=== PATIENT | male | born 1950 | race Caucasian/White ===

== ENCOUNTER 2017-09-14 11:29 | Inpatient (IN) | payer MEDICARE, OTHER ==
[2017-09-14] MEDS ORDERED: RINGERS SOLUTION,LACTATED 1,000 ML IV PRN (12:00)
--- NOTE | 2017-09-14 12:03 | ER Document Report ---
ED Medical Screen (RME) - General Chief Complaint: Syncope Stated Complaint: FALL/BODY PAIN Time Seen by Provider: 09/14/17 11:57 Notes: 67 years old male with a history of prosthetic valve, taking Eliquis, diabetes on Victoza, woke up this morning did not eat anything or drink anything, went out to cut his grass. Then he found himself waking up from the from the grass. Fell backwards. He do not remember anything prior to that meeting any symptoms prior to falling down. He was cutting the grass for a few minutes. Then got up on his own came to the ED. Currently have no headache no neck pain or neck stiffness but have upper back pain and low back pain. Denies any chest pain palpitation or diaphoresis. Denies any focal weakness numbness tingling sensation. Denies any abdominal pain nausea vomiting diarrhea dysuria frequency. Denies any pain over the upper limbs or lower limbs. TRAVEL OUTSIDE OF THE [place] IN LAST 30 DAYS: No Physical Exam - Vital signs Vitals: Temp Pulse Resp BP Pulse Ox 97.6 F 55 L 18 118/67 95 09/14/17 11:33 09/14/17 11:33 09/14/17 11:33 09/14/17 11:33 09/14/17 11:33 Course - Vital Signs Vital signs: Temp Pulse Resp BP Pulse Ox 97.6 F 55 L 18 118/67 95 09/14/17 11:33 09/14/17 11:33 09/14/17 11:33 09/14/17 11:33 09/14/17 11:33 Doctor's Discharge - Discharge Referrals: DIYA,NO [Primary Care Provider] - Follow up as needed
[2017-09-14 12:45] LABS: ABSOLUTE EOSINOPHILS # (AUTO) 0.5 10^3/uL (0.0-0.6); ABSOLUTE LYMPHOCYTES (AUTO) 1.4 10^3/uL (0.5-4.7); ABSOLUTE MONOCYTES (AUTO) 0.4 10^3/uL (0.1-1.4); ABSOLUTE NEUT (AUTO) 4.6 10^3/uL (1.7-8.2); BASOPHILS % (AUTO) 0.5 % (0-2); EOSINOPHILS % (AUTO) 6.7 % (0-6); HEMATOCRIT 50.8 % (37.9-51.0); HEMOGLOBIN 17.5 g/dL (13.5-17.0); LYMPHOCYTES % (AUTO) 20.7 % (13-45); MEAN CORPUSCULAR HGB CONC 34.4 g/dL (32.0-36.0); MEAN CORPUSCULAR VOLUME 93 fl (80-97); MONOCYTES % (AUTO) 5.5 % (3-13); PLATELET COUNT 135 10^3/uL (150-450); RED BLOOD COUNT 5.46 10^6/uL (4.35-5.55); RED CELL DISTRIBUTION WIDTH 13.5 % (11.5-14.0); SEGMENTED NEUTROPHILS % (AUTO) 66.6 % (42-78); TOTAL CELLS COUNTED % (AUTO) 100 %; WHITE BLOOD COUNT 6.8 10^3/uL (4.0-10.5)
--- NOTE | 2017-09-14 13:04 | RADIOLOGY REPORT (SQ) ---
EXAM DESCRIPTION: CERV SP 4 OR 5 VIEWS; L SPINE WHOLE; T SPINE AP/LAT COMPLETED DATE/TIME: 09/14/2017 12:51 pm REASON FOR STUDY: Syncope/fall/injury COMPARISON: None. FINDINGS: Five view cervical spine: No malalignment or fracture. Disc spaces are fairly preserved. There are anterior flowing osteophytes however. Patent neural foramina. Clear lung apices. Multilevel disc disease with associated osteophytes. Subtle scoliosis but alignment otherwise looks normal. No fracture. No gross mediastinal hematoma allowing for technique. Probable cardiomegaly a nd vascular congestion. Five view lumbosacral spine: No malalignment or fracture. Multilevel disc disease with slight narro wing and osteophytes throughout. No pars defect. Upper pelvis intact. IMPRESSION: 1. Cervical, thoracic and lumbar spine degenerative changes without fracture or malalign ment. TECHNICAL DOCUMENTATION: JOB ID: [id number] Reading location - IP/workstation name: [email or web address]
--- NOTE | 2017-09-14 13:04 | RADIOLOGY REPORT (SQ) ---
EXAM DESCRIPTION: CERV SP 4 OR 5 VIEWS; L SPINE WHOLE; T SPINE AP/LAT COMPLETED DATE/TIME: 09/14/2017 12:51 pm REASON FOR STUDY: Syncope/fall/injury COMPARISON: None. FINDINGS: Five view cervical spine: No malalignment or fracture. Disc spaces are fairly preserved. There are anterior flowing osteophytes however. Patent neural foramina. Clear lung apices. Multilevel disc disease with associated osteophytes. Subtle scoliosis but alignment otherwise looks normal. No fracture. No gross mediastinal hematoma allowing for technique. Probable cardiomegaly a nd vascular congestion. Five view lumbosacral spine: No malalignment or fracture. Multilevel disc disease with slight narro wing and osteophytes throughout. No pars defect. Upper pelvis intact. IMPRESSION: 1. Cervical, thoracic and lumbar spine degenerative changes without fracture or malalign ment. TECHNICAL DOCUMENTATION: JOB ID: [id number] Reading location - IP/workstation name: [email or web address]
--- NOTE | 2017-09-14 13:04 | RADIOLOGY REPORT (SQ) ---
EXAM DESCRIPTION: CERV SP 4 OR 5 VIEWS; L SPINE WHOLE; T SPINE AP/LAT COMPLETED DATE/TIME: 09/14/2017 12:51 pm REASON FOR STUDY: Syncope/fall/injury COMPARISON: None. FINDINGS: Five view cervical spine: No malalignment or fracture. Disc spaces are fairly preserved. There are anterior flowing osteophytes however. Patent neural foramina. Clear lung apices. Multilevel disc disease with associated osteophytes. Subtle scoliosis but alignment otherwise looks normal. No fracture. No gross mediastinal hematoma allowing for technique. Probable cardiomegaly a nd vascular congestion. Five view lumbosacral spine: No malalignment or fracture. Multilevel disc disease with slight narro wing and osteophytes throughout. No pars defect. Upper pelvis intact. IMPRESSION: 1. Cervical, thoracic and lumbar spine degenerative changes without fracture or malalign ment. TECHNICAL DOCUMENTATION: JOB ID: [id number] Reading location - IP/workstation name: [email or web address]
--- NOTE | 2017-09-14 13:08 | RADIOLOGY REPORT (SQ) ---
EXAM DESCRIPTION: CT HEAD WITHOUT COMPLETED DATE/TIME: 09/14/2017 12:57 pm REASON FOR STUDY: Syncope/fall/injury COMPARISON: None. TECHNIQUE: Axial images acquired through the brain without intravenous contrast. Images reviewed wi th bone, brain and subdural windows. Additional sagittal and coronal reconstructions were generated. Images stored on PACS. All CT scanners at this facility use dose modulation, iterative reconstruction, and/or weight based d osing when appropriate to reduce radiation dose to as low as reasonably achievable (ALARA). [facility]: Dose Right [facility]: CareDose [facility]: Dose Right [facility]: Teradose 4D [facility]: [employer] RADIATION DOSE: CT Rad equipment meets quality standard of care and radiation dose reduction techniq ues were employed. CTDIvol: 53.2 mGy. DLP: 1070 mGy-cm. mGy. LIMITATIONS: None. FINDINGS: VENTRICLES: Normal size and contour. CEREBRUM: No masses. No hemorrhage. No midline shift. No evidence for acute infarction. Normal gra y/white matter differentiation. No areas of low density in the white matter. CEREBELLUM: No masses. No hemorrhage. No alteration of density. No evidence for acute infarction. EXTRAAXIAL SPACES: No fluid collections. No masses. ORBITS AND GLOBE: No intra- or extraconal masses. Normal contour of globe without masses. CALVARIUM: No fracture. PARANASAL SINUSES: No fluid or mucosal thickening. SOFT TISSUES: No mass or hematoma. OTHER: No other significant finding. IMPRESSION: NORMAL BRAIN CT WITHOUT CONTRAST. EVIDENCE OF ACUTE STROKE: NO. COMMENT: Quality ID # [id number]: Final reports with documentation of one or more dose reduction techniques (e.g., Automated exposure control, adjustment of the mA and/or kV according to patient size, use of iterative reconstruction technique) TECHNICAL DOCUMENTATION: JOB ID: [id number] [employer]- All Rights Reserved Reading location - IP/workstation name: [email or web address]
[2017-09-14 13:18] LABS: ALANINE AMINOTRANSFERASE 29 U/L (21-72); ALBUMIN 4.3 g/dL (3.5-5.0); ALKALINE PHOSPHATASE 72 U/L (38-126); ANION GAP 15 (5-19); ASPARTATE AMINO TRANSFERASE 29 U/L (17-59); BILIRUBIN,DIRECT 0.3 mg/dL (0.0-0.4); BLOOD UREA NITROGEN 36 mg/dL (7-20); CALCIUM 9.4 mg/dL (8.4-10.2); CARBON DIOXIDE 26 mmol/L (22-30); CHLORIDE 100 mmol/L (98-107); CREATINE KINASE 57 U/L (55-170); GLUCOSE 233 mg/dL (75-110); POTASSIUM 4.5 mmol/L (3.6-5.0); SODIUM 141.3 mmol/L (137-145); TOTAL PROTEIN 7.2 g/dL (6.3-8.2)
[2017-09-14 13:28] LABS: CREATINE KINASE MB 1.41 ng/mL (<4.55); TROPONIN I 0.03 ng/mL
--- NOTE | 2017-09-14 13:38 | ER Document Report ---
ED General - General Chief Complaint: Syncope Stated Complaint: FALL/BODY PAIN Time Seen by Provider: 09/14/17 11:57 TRAVEL OUTSIDE OF THE [place] IN LAST 30 DAYS: No - HPI Notes: Patient is a 67-year-old male with a history of CHF, A. fib (see on Eliquis), diabetes, AZRA, prosthetic heart valve, hypercholesterolemia who presents to the ED complaining of a syncopal episode and now having thoracic back spasming. Patient states that he did not have much to eat this morning, but went out to mow his yard and just started mowing when he must have blacked out because he woke up on the ground landing on his back after a few minutes. Patient states that he was not unconscious for a long period of time that he is aware of. Patient states that he did have some back pain thereafter and spasming. Patient states that he was sweaty when he received was able to get back to his house. Patient states that aside from the back spasms, he has no other concerns or complaints. He did eat some food and drink some water thereafter. Patient states that he checked his sugar prior to mowing the yard and it was around 140. Denies any headache, fever, neck pain, changes in vision/speech/ mentation/hearing, URI, sore throat, chest pain, palpitations, syncope, cough, shortness of breath, wheeze, dyspnea, abdominal pain, nausea/vomiting/diarrhea, urinary retention, dysuria, hematuria, loss of control of bowel or bladder, numbness/tingling, saddle anesthesia, muscle paralysis/weakness, or rash. - Related Data Allergies/Adverse Reactions: No Known Allergies Allergy (Verified 09/14/17 12:04) Past Medical History - Social History Smoking Status: Former Smoker Chew tobacco use (# tins/day): No Frequency of alcohol use: None Drug Abuse: None Family History: Reviewed & Not Pertinent Patient has suicidal ideation: No Patient has homicidal ideation: No - Past Medical History Cardiac Medical History: Reports: Hx Congestive Heart Failure, Hx Heart Attack, Hx Hypercholesterolemia, Hx Hypertension Endocrine Medical History: Reports: Hx Diabetes Mellitus Type 2 Renal/ Medical History: Denies: Hx Peritoneal Dialysis Past Surgical History: Reports: Hx Cardiac Catheterization, Hx Cardiac Surgery - valve replacement Review of Systems - Review of Systems -: Yes All other systems reviewed and negative Physical Exam - Vital signs Vitals: Temp Pulse Resp BP Pulse Ox 97.6 F 55 L 18 118/67 95 09/14/17 11:33 09/14/17 11:33 09/14/17 11:09/14/17 11:09/14/17 11:33 - Notes Notes: PHYSICAL EXAMINATION: GENERAL: Well-appearing, well-nourished and in no acute distress. A&Ox4. Answers questions appropriately. Very pleasant. HEAD: Atraumatic, normocephalic. Non-tender. No trammell sign. no bogginess or hematoma. EYES: Pupils equal round and reactive to light, extraocular movements intact, sclera anicteric, conjunctiva are normal. No raccoon eyes/entrapment. no nystagmus. ENT: EAC clear b/l. TM's intact b/l without erythema, fluid, or perforation. Nares patent and without discharge. oropharynx clear without exudates. No tonsilar hypertrophy or erythema. Moist mucous membranes. No sinus tenderness. No hemotympanum/CSF discharge. NECK: Normal range of motion, supple without lymphadenopathy. No rigidity. No midline tenderness. NEXUS negative. No bruit. Chest: no ecchymosis. No flail chest. equal rise/fall. Non-tender LUNGS: Breath sounds clear to auscultation bilaterally and equal. No wheezes rales or rhonchi. HEART: Regular rate and rhythm without murmurs, rubs, gallops. ABDOMEN: Soft, nontender, nondistended abdomen. No guarding, no rebound. No masses appreciated. Normal bowel sounds present. No CVA tenderness bilaterally. No ecchymosis. Musculoskeletal: Ext b/l: FROM to passive/active. Strength 5+/5. No deficits noted. No bony tenderness of extremities. Back: FROM to passive/active. Strength 5+/5. No vertebral point tenderness, stepoffs, or deformities. No other bony tenderness or ecchymosis. SLR negative b/l. + tenderness to the rt T-paraspinal mm, mild spasm. No SI jt tenderness. No foot drop. Extremities: No cyanosis, clubbing, or edema b/l. Peripheral pulses 2+. Capillary refill less than 2 seconds. NEUROLOGICAL: NIH 0. GCS 15. Cranial nerves grossly intact. Normal speech, normal gait. Normal sensory, motor exams. Reflexes 2+ b/l. RADHA's negative. Pronator drift negative. Heel/hernandez, finger/nose wnl. PSYCH: Normal mood, normal affect. SKIN: Warm, Dry, normal turgor, no rashes or lesions noted. Course - Re-evaluation Re-evalutation: 09/14/17 14:[address] pierce. We will obtain a CTA chest/abd to further evaluate for dissection with his back pain/spasms, but we do have a lower suspicion based on his presentation and acceptable vitals. Admission pending thereafter. 09/14/17 16:04 CTA negative. Call placed to Dr. Issa for admission. 09/14/17 16:[address] Issa. He would like a 2nd trop performed. 09/14/17 16:51 Dr. Issa faxed an admission order accepting patient and orders placed by himself. - Vital Signs Vital signs: Temp Pulse Resp BP Pulse Ox 97.6 F 71 25 H 127/74 H 95 09/14/17 11:33 09/14/17 14:10 09/14/17 16:10 09/14/17 16:10 09/14/17 16:10 - Laboratory Result Diagrams: 09/14/17 12:20 09/14/17 12:20 Laboratory results interpreted by me: 09/14/17 09/14/17 09/14/17 12:20 12:20 13:40 Hgb 17.5 H Plt Count 135 L Eosinophils % 6.7 H BUN 36 H Creatinine 1.38 H Est GFR (Non-Af Amer) 51 L Glucose 233 H Urine Ascorbic Acid 40 H Discharge - Discharge Clinical Impression: Chronic a-fib Episode of syncope Qualifiers: Syncope type: unspecified Qualified Code(s): R55 - Syncope and collapse Condition: Stable Disposition: ADMITTED INPATIENT Admitting Provider: Luis Manuel Unit Admitted: Medical Floor
[2017-09-14 14:02] LABS: APPEARANCE,URINE CLEAR; BILIRUBIN,URINE NEGATIVE (NEGATIVE); COLOR,URINE YELLOW; GLUCOSE, URINE NEGATIVE (NEGATIVE); KETONES,URINE NEGATIVE (NEGATIVE); LEUKOCYTE ESTERASE,URINE NEGATIVE (NEGATIVE); NITRITE,URINE NEGATIVE (NEGATIVE); PROTEIN,URINE NEGATIVE (NEGATIVE); URINE SPECIFIC GRAVITY 1.011; UROBILINOGEN,URINE NEGATIVE mg/dL (<2.0)
--- NOTE | 2017-09-14 14:18 | RADIOLOGY REPORT (SQ) ---
EXAM DESCRIPTION: CHEST SINGLE VIEW COMPLETED DATE/TIME: 09/14/2017 1:52 pm REASON FOR STUDY: syncope COMPARISON: None. NUMBER OF VIEWS: One view. TECHNIQUE: Single frontal radiographic view of the chest acquired. LIMITATIONS: None. FINDINGS: LUNGS AND PLEURA: No opacities, masses or pneumothorax. No pleural effusion. MEDIASTINUM AND HILAR STRUCTURES: No masses. Contour normal. HEART AND VASCULAR STRUCTURES: Heart enlarged without failure. Normal vasculature. BONES: No acute findings. HARDWARE: CABG hardware. OTHER: No other significant finding. IMPRESSION: HEART ENLARGED WITHOUT FAILURE. NO OTHER SIGNIFICANT RADIOGRAPHIC FINDING IN THE CHEST. TECHNICAL DOCUMENTATION: JOB ID: [id number] [employer]- All Rights Reserved Reading location - IP/workstation name: [email or web address]
[2017-09-14] MEDS ORDERED: CYCLOBENZAPRINE HCL 10 MG TABLET PO ONE (14:24)
[2017-09-14 14:51] LABS: URINE AMPHETAMINES SCREEN NEGATIVE; URINE BARBITURATES SCREEN NEGATIVE; URINE BENZODIAZEPINES SCREEN NEGATIVE; URINE COCAINE SCREEN NEGATIVE; URINE MARIJUANA (THC) SCREEN NEGATIVE; URINE METHADONE SCREEN NEGATIVE; URINE PHENCYCLIDINE SCREEN NEGATIVE
[2017-09-14] MEDS ORDERED: FENTANYL CITRATE INJ/PF 100 MCG/2 ML AMPUL IV ONE (15:18)
--- NOTE | 2017-09-14 15:59 | RADIOLOGY REPORT (SQ) ---
EXAM DESCRIPTION: CTA CHEST; CTA ABDOMEN COMPLETED DATE/TIME: 09/14/2017 3:36 pm REASON FOR STUDY: r/o dissection, extend to iliacs; r/o dissection, syncope, back pain COMPARISON: None. TECHNIQUE: CT scan of the chest, abdomen performed using helical scanning technique with dynamic int ravenous contrast injection. Images reviewed with lung, soft tissue and bone windows. Reconstructed coronal and sagittal MPR images reviewed. Additional 3 dimensional post-processing performed to develop Maximal Intensity Projection images (MT P). All images stored on PACS. All CT scanners at this facility use dose modulation, iterative reconstruction, and/or weight based d osing when appropriate to reduce radiation dose to as low as reasonably achievable (ALARA). [facility]: Dose Right [facility]: CareDose [facility]: Dose Right [facility]: Teradose 4D [facility]: [employer] CONTRAST TYPE AND DOSE: contrast/concentration: Isovue 370.00 mg/ml; Total Contrast Delivered: 75.0 ml; Total Saline Delivered: 60.0 ml RENAL FUNCTION: Creatinine 1.38 RADIATION DOSE: CT Rad equipment meets quality standard of care and radiation dose reduction techniq ues were employed. CTDIvol: 22.5 mGy. DLP: 834 mGy-cm. . LIMITATIONS: None. FINDINGS: CHEST AORTA AND GREAT VESSELS: Mild aortic valve replacement artifact. Normal caliber aorta without dissec tion or aneurysm. Mild atherosclerosis. Clear pulmonary arteries. HILAR AND MEDIASTINAL STRUCTURES: Cardiac enlargement. No pericardial effusion. No mediastinal mass or adenopathy. 3D MIPS: Confirm above findings. OTHER: No acute or suspicious lung opacities. No fracture or bone lesion appreciated. ABDOMEN AORTA AND VESSELS: No evidence of aortic dissection or aneurysm. Patent mesenteric and renal arteri es. Normal caliber patent bilateral common, internal and external iliac arteries as assessed. No ve nous clot. SOLID ORGANS, BILIARY TREE AND ADRENAL GLANDS: Cholelithiasis. No evidence of solid organ lesion or urinary obstruction. No adrenal mass. BOWEL: No evidence of bowel obstruction or gross inflammatory changes. Normal appendix. No ascites or abnormal gas. OTHER: No evidence of fracture or bone lesion. Spondylosis. IMPRESSION: 1. No evidence of thoracic or abdominal aortic aneurysm or dissection. 2. No acute or suspicious thoracic or abdominal abnormality. COMMENT: Quality ID # 436: Final reports with documentation of one or more dose reduction techniques (e.g., Automated exposure control, adjustment of the mA and/or kV according to patient size, use of iterative reconstruction technique) TECHNICAL DOCUMENTATION: JOB ID: [id number] [employer]- All Rights Reserved Reading location - IP/workstation name: [email or web address]
--- NOTE | 2017-09-14 15:59 | RADIOLOGY REPORT (SQ) ---
EXAM DESCRIPTION: CTA CHEST; CTA ABDOMEN COMPLETED DATE/TIME: 09/14/2017 3:36 pm REASON FOR STUDY: r/o dissection, extend to iliacs; r/o dissection, syncope, back pain COMPARISON: None. TECHNIQUE: CT scan of the chest, abdomen performed using helical scanning technique with dynamic int ravenous contrast injection. Images reviewed with lung, soft tissue and bone windows. Reconstructed coronal and sagittal MPR images reviewed. Additional 3 dimensional post-processing performed to develop Maximal Intensity Projection images (MD P). All images stored on PACS. All CT scanners at this facility use dose modulation, iterative reconstruction, and/or weight based d osing when appropriate to reduce radiation dose to as low as reasonably achievable (ALARA). [facility]: Dose Right [facility]: CareDose [facility]: Dose Right [facility]: Teradose 4D [facility]: [employer] CONTRAST TYPE AND DOSE: contrast/concentration: Isovue 370.00 mg/ml; Total Contrast Delivered: 75.0 ml; Total Saline Delivered: 60.0 ml RENAL FUNCTION: Creatinine 1.38 RADIATION DOSE: CT Rad equipment meets quality standard of care and radiation dose reduction techniq ues were employed. CTDIvol: 22.5 mGy. DLP: 834 mGy-cm. . LIMITATIONS: None. FINDINGS: CHEST AORTA AND GREAT VESSELS: Mild aortic valve replacement artifact. Normal caliber aorta without dissec tion or aneurysm. Mild atherosclerosis. Clear pulmonary arteries. HILAR AND MEDIASTINAL STRUCTURES: Cardiac enlargement. No pericardial effusion. No mediastinal mass or adenopathy. 3D MIPS: Confirm above findings. OTHER: No acute or suspicious lung opacities. No fracture or bone lesion appreciated. ABDOMEN AORTA AND VESSELS: No evidence of aortic dissection or aneurysm. Patent mesenteric and renal arteri es. Normal caliber patent bilateral common, internal and external iliac arteries as assessed. No ve nous clot. SOLID ORGANS, BILIARY TREE AND ADRENAL GLANDS: Cholelithiasis. No evidence of solid organ lesion or urinary obstruction. No adrenal mass. BOWEL: No evidence of bowel obstruction or gross inflammatory changes. Normal appendix. No ascites or abnormal gas. OTHER: No evidence of fracture or bone lesion. Spondylosis. IMPRESSION: 1. No evidence of thoracic or abdominal aortic aneurysm or dissection. 2. No acute or suspicious thoracic or abdominal abnormality. COMMENT: Quality ID # [id number]: Final reports with documentation of one or more dose reduction techniques (e.g., Automated exposure control, adjustment of the mA and/or kV according to patient size, use of iterative reconstruction technique) TECHNICAL DOCUMENTATION: JOB ID: [id number] [employer]- All Rights Reserved Reading location - IP/workstation name: [email or web address]
[2017-09-14] MEDS ORDERED: ACETAMINOPHEN 325 MG TABLET PO PRN (16:28)
[2017-09-14] MEDS ORDERED: DEXTROSE 50%-WATER 25 GM/50 ML DISP.SYRIN IV PRN ×2 (16:29)
[2017-09-14] MEDS ORDERED: DEXTROSE 40% GEL 15 GM TUBE PO PRN ×2 (16:29)
[2017-09-14] MEDS ORDERED: GLUCAGON,HUMAN RECOMB 1 MG INJ IM PRN (16:29)
[2017-09-14] MEDS ORDERED: PRAVASTATIN SODIUM 5 MG PO SCH ×2 (16:30→16:38)
--- NOTE | 2017-09-14 17:16 | PDOC H&P ---
History of Present Illness Admission Date/PCP: NIKO DAWN MD Patient complains of: Syncopal episode History of Present Illness: OLE MENDEZ is a 67 year old male This is a 67-year-old male with a significant history of the aortic valve replacement with a pig well in the [facility] history of the coronary artery disease status post stent placement history of the hypertension history of the hyperlipidemia and history of the type 2 diabetes mellitus and a history of the chronic A. fib and a chronic EliquisRecently came to see me as a new patient in my office last week came to the emergency department because of the syncopal episode According to the patient when he was working in the yard and suddenly patient's blackout and patient was landed on the ground with his back and then started complaining of back pain patient's denied any loss of consciousness patient's denied any chest pain denied any shortness of the breath In the emergency department patient have a CT of the head was done was negative patient was CTA of the chest and abdomen and pelvis was done was negative for any dissections or other abnormalities Should have x-ray of the spine was all negative for any acute fractures Was giving the fentanyl And muscle relaxant for the back spasmIn the emergency departments Patient at this point ER physicians call to her admissions 4 to rule out further any cardiac arrhythmia Patients went outside denied any chest pain denied any shortness of the breath Past Medical History Cardiac Medical History: Reports: Congestive Heart Failure, Coronary Artery Disease, Myocardial Infarction, Hyperlipidema, Hypertension Endocrine Medical History: Reports: Diabetes Mellitus Type 2 Renal/ Medical History: Reports: Chronic Kidney Disease GI Medical History: Reports: Gastroesophageal Reflux Disease Past Surgical History Past Surgical History: Reports: Cardiac Catheterization, Coronary Stent, Valve Replacement Social History Information Source: Parent Smoking Status: Former Smoker Frequency of Alcohol Use: None Hx Recreational Drug Use: No Hx Prescription Drug Abuse: No Family History Family History: Reviewed & Not Pertinent Parental Family History Reviewed: Yes Children Family History Reviewed: Yes Sibling(s) Family History Reviewed.: Yes Medication/Allergy Home Medications: Apixaban [Eliquis] 5 mg PO QAM 09/14/17 Carvedilol [Carvedilol] 3.125 mg PO BID 09/14/17 Furosemide [Lasix 40 mg Tablet] 40 mg PO DAILY 09/14/17 Liraglutide [Victoza 2-Nelson] 1.2 ml SQ QAM 09/14/17 Pravastatin Sodium [Pravastatin Sodium] 5 mg PO MOWEFR 09/14/17 Spironolactone [Spironolactone] 25 mg PO QAM 09/14/17 Allergies/Adverse Reactions: No Known Allergies Allergy (Verified 09/14/17 12:04) Review of Systems Constitutional: ABSENT: chills, fever(s), headache(s), weight gain, weight loss Eyes: ABSENT: visual disturbances Ears: ABSENT: hearing changes Cardiovascular: ABSENT: chest pain, dyspnea on exertion, edema, orthropnea, palpitations Respiratory: ABSENT: cough, hemoptysis Gastrointestinal: ABSENT: abdominal pain, constipation, diarrhea, hematemesis, hematochezia, nausea, vomiting Genitourinary: ABSENT: dysuria, hematuria Musculoskeletal: ABSENT: joint swelling Integumentary: ABSENT: rash, wounds Neurological: ABSENT: abnormal gait, abnormal speech, confusion, dizziness, focal weakness, syncope Psychiatric: ABSENT: anxiety, depression, homidical ideation, suicidal ideation Endocrine: ABSENT: cold intolerance, heat intolerance, menstrual abnormalities, polydipsia, polyuria Hematologic/Lymphatic: ABSENT: easy bleeding, easy bruising, lymphadenopathy Physical Exam Vital Signs: Temp Pulse Resp BP Pulse Ox 97.6 F 71 16 118/82 94 09/14/17 11:33 09/14/17 14:10 09/14/17 15:00 09/14/17 14:10 09/14/17 15:00 Intake & Output 09/13/17 09/14/17 09/15/17 06:59 06:59 06:59 Weight 123.377 kg General appearance: PRESENT: no acute distress, well-developed, well-nourished Head exam: PRESENT: atraumatic, normocephalic Eye exam: PRESENT: conjunctiva pink, EOMI, PERRLA. ABSENT: scleral icterus Ear exam: PRESENT: normal external ear exam Mouth exam: PRESENT: moist, tongue midline Neck exam: PRESENT: full ROM. ABSENT: carotid bruit, JVD, lymphadenopathy, thyromegaly Respiratory exam: PRESENT: clear to auscultation [place] Cardiovascular exam: PRESENT: RRR. ABSENT: diastolic murmur, rubs, systolic murmur Pulses: PRESENT: normal dorsalis pedis pul, +2 pedal pulses bilateral Vascular exam: PRESENT: normal capillary refill GI/Abdominal exam: PRESENT: normal bowel sounds, soft. ABSENT: distended, guarding, mass, organolmegaly, rebound, tenderness Rectal exam: PRESENT: deferred Extremities exam: ABSENT: pedal edema Musculoskeletal exam: PRESENT: ambulatory Neurological exam: PRESENT: alert, awake, oriented to person, oriented to place , oriented to time, oriented to situation, CN II-XII grossly intact. ABSENT: motor sensory deficit Psychiatric exam: PRESENT: appropriate affect, normal mood. ABSENT: homicidal ideation, suicidal ideation Skin exam: PRESENT: dry, intact, warm. ABSENT: cyanosis, rash Results Laboratory Results: 09/14/17 12:20 09/14/17 12:20 09/14/17 09/14/17 09/14/17 12:20 12:20 13:40 WBC 6.8 RBC 5.46 Hgb 17.5 H Hct 50.8 MCV 93 MCH 32.0 MCHC 34.4 RDW 13.5 Plt Count 135 L Seg Neutrophils % 66.6 Lymphocytes % 20.7 Monocytes % 5.5 Eosinophils % 6.7 H Basophils % 0.5 Absolute Neutrophils 4.6 Absolute Lymphocytes 1.4 Absolute Monocytes 0.4 Absolute Eosinophils 0.5 Absolute Basophils 0.0 Sodium 141.3 Potassium 4.5 Chloride 100 Carbon Dioxide 26 Anion Gap 15 BUN 36 H Creatinine 1.38 H Est GFR ( Amer) > 60 Est GFR (Non-Af Amer) 51 L Glucose 233 H Calcium 9.4 Total Bilirubin 1.0 AST 29 ALT 29 Alkaline Phosphatase 72 Total Protein 7.2 Albumin 4.3 Urine Color YELLOW Urine Appearance CLEAR Urine pH 5.0 Ur Specific [place] 1.011 Urine Protein NEGATIVE Urine Glucose (UA) NEGATIVE Urine Ketones NEGATIVE Urine Blood NEGATIVE Urine Nitrite NEGATIVE Ur Leukocyte Esterase NEGATIVE Urine WBC (Auto) 1 09/14/17 09/14/17 09/14/17 12:20 12:20 12:20 Creatine Kinase 57 CK-MB (CK-2) 1.41 Troponin I 0.030 NT-Pro-B Natriuret Pep 170 Impressions: Cervical Spine X-Ray 09/14/17 11:58 IMPRESSION: 1. Cervical, thoracic and lumbar spine degenerative changes without fracture or malalignment. Head CT 09/14/17 11:58 IMPRESSION: NORMAL BRAIN CT WITHOUT CONTRAST. EVIDENCE OF ACUTE STROKE: NO. Lumbar Spine X-Ray 09/14/17 11:58 IMPRESSION: 1. Cervical, thoracic and lumbar spine degenerative changes without fracture or malalignment. Thoracic Spine X-Ray 09/14/17 11:58 IMPRESSION: 1. Cervical, thoracic and lumbar spine degenerative changes without fracture or malalignment. Chest X-Ray 09/14/17 13:31 IMPRESSION: HEART ENLARGED WITHOUT FAILURE. NO OTHER SIGNIFICANT RADIOGRAPHIC FINDING IN THE CHEST. Chest/Abdomen CTA 09/14/17 14:39 IMPRESSION: 1. No evidence of thoracic or abdominal aortic aneurysm or dissection. 2. No acute or suspicious thoracic or abdominal abnormality. Assessment & Plan - Diagnosis (1) Syncopal episodes Qualifiers: Syncope type: unspecified Qualified Code(s): R55 - Syncope and collapse Is this a current diagnosis for this admission?: Yes Plan: Will admit the patient's to rule out the other etiology including the cardiac arrhythmia As per discussed with the cardiology order the echocardiogram to rule out aortic valve we will also order the carotid Doppler study (2) Aortic valve replaced Is this a current diagnosis for this admission?: Yes Plan: Will order the 2D echocardiogram (3) Chronic a-fib Is this a current diagnosis for this admission?: Yes Plan: Continues to Eliquis (4) Coronary artery disease Qualifiers: Coronary Disease-Associated Artery/Lesion type: [place] artery Is this a current diagnosis for this admission?: Yes Plan: Will rule out the acute coronary syndromes (5) Hypertension Qualifiers: Hypertension type: essential hypertension Qualified Code(s): I10 - Essential (primary) hypertension Is this a current diagnosis for this admission?: Yes Plan: Continues to current medications (6) Type 2 diabetes mellitus Qualifiers: Diabetes mellitus fpc 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 Chronic kidney disease stage: stage 3 (moderate) Is this a current diagnosis for this admission?: Yes Plan: Continues to sliding scale and continues to current medications (7) Hyperlipidemia Qualifiers: Hyperlipidemia type: unspecified Qualified Code(s): E78.5 - Hyperlipidemia , unspecified Is this a current diagnosis for this admission?: Yes Plan: Continues to statin (8) Back pain Qualifiers: Back pain location: low back pain Is this a current diagnosis for this admission?: Yes Plan: As needed pain medicationsNo sign of any acute fracture (9) Chronic kidney disease Qualifiers: Chronic kidney disease stage: stage 3 (moderate) Qualified Code(s): N18.3 - Chronic kidney disease, stage 3 (moderate) Is this a current diagnosis for this admission?: Yes Plan: There was some central IV fluid due to the IV contrast (10) Congestive heart failure Qualifiers: Heart failure type: unspecified Heart failure chronicity: chronic Qualified Code(s): I50.9 - Heart failure, unspecified Is this a current diagnosis for this admission?: Yes Plan: Continues to monitor the patient's - Time Time Spent: 50 to 70 Minutes Medications reviewed and adjusted accordingly: Yes Anticipated discharge: Home Within: Other - Inpatient Certification Medical Necessity: Need Close Monitoring Due to Risk of Patient Decompensation, Need For IV Fluids 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
[2017-09-14] MEDS: NORMAL SALINE 1000 ML 1,000 ML IV PRN (18:08)
--- NOTE | 2017-09-14 20:12 | PDOC CONSULTATION ---
Consultation Consult Date: 09/14/17 Attending physician:: NIKO DAWN Consult reason:: Syncope History of Present Illness Admission Date/PCP: 09/14/17 16:24 NIKO DAWN MD Patient complains of: Syncope History of Present Illness: This is a 67-year-old male with a significant history of the aortic valve replacement with a pig well in the [facility] history of the coronary artery disease status post stent placement history of the hypertension history of the hyperlipidemia and history of the type 2 diabetes mellitus and a history of the chronic A. fib and a chronic EliquisRecently came to see me as a new patient in my office last week came to the emergency department because of the syncopal episode According to the patient when he was working in the yard and suddenly patient's blackout and patient was landed on the ground with his back and then started complaining of back pain patient's denied any loss of consciousness patient's denied any chest pain denied any shortness of the breath In the emergency department patient have a CT of the head was done was negative patient was CTA of the chest and abdomen and pelvis was done was negative for any dissections or other abnormalities Should have x-ray of the spine was all negative for any acute fractures Was giving the fentanyl And muscle relaxant for the back spasmIn the emergency departments Patient at this point ER physicians call to her admissions 4 to rule out further any cardiac arrhythmia Patients went outside denied any chest pain denied any shortness of the breath. This history obtained by the cut off saw grader was reviewed and confirmed with the patient. Patient denied any prior history of syncope, near syncope. Patient claims that he was working in the heat and mowing the lawn when he felt dizzy and subsequently passed out. He claims that he was gone just for a few seconds or even less. He claims that he also strained his back. Patient denied any recent episodes of chest pain, sustained palpitations. His stress test was several years ago. He follows up with the cardiology at [facility]. Past Medical History Cardiac Medical History: Reports: Congestive Heart Failure, Coronary Artery Disease, Myocardial Infarction, Hyperlipidema, Hypertension Endocrine Medical History: Reports: Diabetes Mellitus Type 2 Renal/ Medical History: Reports: Chronic Kidney Disease GI Medical History: Reports: Gastroesophageal Reflux Disease Past Surgical History Past Surgical History: Reports: Cardiac Catheterization, Coronary Stent, Valve Replacement - Aortic valve by a bioprosthetic bovine valve Social History Information Source: Patient Smoking Status: Former Smoker Frequency of Alcohol Use: None Hx Recreational Drug Use: No Hx Prescription Drug Abuse: No - Advance Directive Surrogate healthcare decision maker:: Dulce Maria Nash, patient's daughter Family History Family History: Hypertension Parental Family History Reviewed: Yes Children Family History Reviewed: Yes Sibling(s) Family History Reviewed.: Yes Medication/Allergy Home Medications: Apixaban [Eliquis] 5 mg PO Q12 09/14/17 Aspirin [Ecotrin 81 mg EC Tablet] 81 mg PO DAILY 09/14/17 Carvedilol [Carvedilol] 3.125 mg PO Q12 09/14/17 Furosemide [Lasix 40 mg Tablet] 40 mg PO DAILY 09/14/17 Liraglutide [Victoza 2-Nelson] 1.2 ml SQ QAM 09/14/17 Losartan Potassium [Cozaar 25 mg Tablet] 25 mg PO QHS 09/14/17 Pravastatin Sodium [Pravastatin Sodium] 5 mg PO MOWEFR 09/14/17 Spironolactone [Spironolactone] 25 mg PO QAM 09/14/17 Allergies/Adverse Reactions: No Known Allergies Allergy (Verified 09/14/17 12:04) Review of Systems Review of Systems: Please see history of present illness and past medical history as wall. Constitutional: No fever or chills reported. Head : No recent chronic headaches, recent head injury. Eyes: No recent eye pain, diplopia, redness, discharge, acute visual changes. Ears: No recent chronic ear pain, acute hearing loss, ear discharge. Oral cavity: No recent ulcerations, bleeding, oral cavity discomfort. Neck: No recent acute neck pain reported. Hematologic: No recent easy bruising or bleeding. Lymphatic: No recent lymph node enlargement reported. Cardiovascular system review: See history of present illness. Respiratory system review: No hemoptysis or blood clots in the lungs reported. Mild Shortness of breath on exertion Gastrointestinal system review: Negative for any recent acute hematemesis, melena. Genitourinary system review: No recent acute or chronic hematuria, flank pain, UTI etc. reported. Skin system review: Negative for any recent abnormal bruising, no rash, no pruritus reported. Neurologic: No prior history of strokes, mini strokes, seizure disorder. Psychologic: No history of major psychosis or major depression reported. Musculoskeletal: Minor aches and pains reported. No acute joint swelling reported. Endocrine: No recent polyuria, polydipsia, recent heat or cold intolerance. Physical Exam Vital Signs: Temp Pulse Resp BP Pulse Ox 97.6 F 71 19 137/101 H 97 09/14/17 11:33 09/14/17 14:10 09/14/17 18:01 09/14/17 18:01 09/14/17 18:01 Intake & Output 09/13/17 09/14/17 09/15/17 06:59 06:59 06:59 Intake Total 490 Output Total 900 Balance -410 Exam: GENERAL: well-nourished and in no acute distress. Alert and oriented x3 HEAD: Atraumatic, normocephalic. EYES: Pupils equal round and reactive to light, extraocular movements intact, sclera anicteric, conjunctiva are normal. ENT: TMs normal, nares patent, oropharynx clear without exudates. Moist mucous membranes. No oral ulcerations or bleeding gums noted NECK: supple without lymphadenopathy. Trachea is central. No cervical or axillary lymphadenopathy noted. Carotids are 2+, JVD WNL LUNGS: Respiration seems nonlabored, no significant accessory muscle action noted. Breath sounds clear to auscultation bilaterally and equal noted. No wheezes rales or rhonchi noted. No significant dullness noted on percussion. CHEST: Palpation of the chest wall shows no significant chest wall tenderness. 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 ABDOMEN: Soft, no significant tenderness appreciated, normoactive bowel sounds. No guarding, no rebound. No rigidity noted . No masses appreciated. EXTREMITIES: Pedal pulses are 1-2+, no calf tenderness noted. No clubbing or cyanosis. Trace to 1+ pedal edema noted NEUROLOGICAL: Focused neurological exam showed no significant neurologic deficit. Normal speech, no focal weakness appreciated. PSYCH: Normal mood, normal affect. Judgment and insight within normal limits. SKIN: No significant ecchymosis, skin is noted to be warm. MUSCULOSKELETAL EXAM: No significant acute joint swelling noted. Results Laboratory Results: 09/14/17 16:55 Troponin I 0.033 EKG Comments: Atrial fibrillation, heart rate response controlled. No acute ST-T wave changes are noted Impressions: Cervical Spine X-Ray 09/14/17 11:58 IMPRESSION: 1. Cervical, thoracic and lumbar spine degenerative changes without fracture or malalignment. Head CT 09/14/17 11:58 IMPRESSION: NORMAL BRAIN CT WITHOUT CONTRAST. EVIDENCE OF ACUTE STROKE: NO. Lumbar Spine X-Ray 09/14/17 11:58 IMPRESSION: 1. Cervical, thoracic and lumbar spine degenerative changes without fracture or malalignment. Thoracic Spine X-Ray 09/14/17 11:58 IMPRESSION: 1. Cervical, thoracic and lumbar spine degenerative changes without fracture or malalignment. Chest X-Ray 09/14/17 13:31 IMPRESSION: HEART ENLARGED WITHOUT FAILURE. NO OTHER SIGNIFICANT RADIOGRAPHIC FINDING IN THE CHEST. Chest/Abdomen CTA 09/14/17 14:39 IMPRESSION: 1. No evidence of thoracic or abdominal aortic aneurysm or dissection. 2. No acute or suspicious thoracic or abdominal abnormality. Assessment & Plan - Diagnosis (1) Syncopal episodes Qualifiers: Syncope type: unspecified Qualified Code(s): R55 - Syncope and collapse Is this a current diagnosis for this admission?: Yes (2) Aortic valve replaced Is this a current diagnosis for this admission?: Yes (3) Chronic a-fib Is this a current diagnosis for this admission?: Yes (4) Coronary artery disease Qualifiers: Coronary Disease-Associated Artery/Lesion type: [place] artery Is this a current diagnosis for this admission?: Yes (5) Hyperlipidemia Qualifiers: Hyperlipidemia type: unspecified Qualified Code(s): E78.5 - Hyperlipidemia , unspecified Is this a current diagnosis for this admission?: Yes (6) Hypertension Qualifiers: Hypertension type: essential hypertension Qualified Code(s): I10 - Essential (primary) hypertension Is this a current diagnosis for this admission?: Yes (7) Type 2 diabetes mellitus Qualifiers: Diabetes mellitus correction insulin use: unspecified correction insulin use status Chronic kidney disease stage: stage 3 (moderate) Is this a current diagnosis for this admission?: Yes - Notes Notes: Agree with 2D echo, carotid duplex and cardiac monitoring etc. to evaluate syncope. Patient may benefit from cardiac event monitoring as an outpatient. Syncope: This is a concerning symptoms and patient with CAD and prior myocardial infarction. This includes cardiac dysrhythmia especially ventricular tachyarrhythmia, atrial flutter fibrillation with rapid ventricular response, tachybradycardia episodes, seizure disorder, orthostatic hypotension, vasovagal etc. 2D echocardiogram reviewed which shows relatively well-preserved LVEF. No significant valvular restenosis noted. Bioprosthetic aortic valve seems to be functioning normally. Discussed that he would probably state over the weekend for cardiac monitoring, a stress test to be performed. Possible discharge on Sunday on a event monitor. Aortic valve, bioprosthetic: Seems to be functioning normally. Chronic A. fib: Recommend rate control and continuation of chronic anticoagulation. Coronary artery disease: Currently symptomatically stable. Patient to report any recurrence of chest pain. Dyslipidemia: Continue hypotensive statin therapy. Hypertension: Currently reasonably controlled. Consider obtaining orthostatic blood pressures. Diabetes: Currently being well managed by patient's cut off saw grader. - Time Time Spent: 30 to 50 Minutes - CODE STATUS was discussed, patient remains full code. Surrogate decision-maker unchanged. Multiple medical problems were addressed. More than 50% of the time spent coordinating care, discussing management plans with involved caregivers. Management plans discussed with involved personnels. Medical decision making was of moderate to high complexity , patient's has multiple comorbidities. Medications reviewed and adjusted accordingly: Yes
--- NOTE | 2017-09-14 21:24 | RADIOLOGY REPORT (SQ) ---
EXAM DESCRIPTION: CAROTID DOPPLER COMPLETED DATE/TIME: 09/14/2017 8:19 pm REASON FOR STUDY: syncoap episode COMPARISON: None. TECHNIQUE: Grayscale ultrasound, Doppler velocity and spectra, and color Doppler images acquired of the extra-cranial carotid and vertebral arteries. Images stored on PACS. LIMITATIONS: None. FINDINGS: RIGHT CAROTID CCA Velocities: Within normal limits. ICA Velocities Peak systolic 142 cm/s. End diastolic 26 cm/s. Proximal ICA/CCA peak systolic ratio 2.1. Calcified plaque within the carotid bulb and origin of the internal carotid artery results in 50 to 6 9% stenosis. LEFT CAROTID CCA Velocities: Within normal limits. ICA Velocities Peak systolic 95 cm/s. End diastolic 19 cm/s. Proximal ICA/CCA peak systolic ratio 1.4. Calcified plaque within the carotid bulb results in less than 50% stenosis of the internal carotid ar morgan. VERTEBRAL ARTERIES: Antegrade flow. Normal waveforms. SUBCLAVIAN ARTERIES: No finding. OTHER: No other significant finding. IMPRESSION: Calcified atherosclerotic plaque results in 50 to 69% stenosis of the right internal car otid artery and less than 50% stenosis of the left internal carotid artery. COMMENT: Quality ID #[id number]: Velocity criteria are extrapolated from the diameter data as defined by t he Society of Radiologists in Ultrasound Consensus Conference. Radiology 2003: 229; 340-346. TECHNICAL DOCUMENTATION: JOB ID: [id number] [employer]- All Rights Reserved Reading location - IP/workstation name: [email or web address]
[2017-09-14] MEDS: OXYCODONE-ACETAMINOPHEN 5-325 MG TABLET PO PRN (21:29)
--- NOTE | 2017-09-14 22:31 | EKG REPORT ---
SEVERITY:- ABNORMAL ECG - ATRIAL FIBRILLATION, V-RATE 61-97 LOW VOLTAGE THROUGHOUT BORDERLINE R WAVE PROGRESSION, ANTERIOR LEADS : Confirmed by: Trisha Gaming MD 14-Sep-2017 22:30:30
[2017-09-15 01:56] LABS: CREATINE KINASE MB 1.21 ng/mL (<4.55); TROPONIN I 0.026 ng/mL
[2017-09-15] MEDS: CARVEDILOL 3.125 MG TABLET PO SCH ×3 (02:00→17:08)
[2017-09-15] MEDS: OXYCODONE-ACETAMINOPHEN 5-325 MG TABLET PO PRN ×3 (05:39→20:31)
[2017-09-15] MEDS ORDERED: LIRAGLUTIDE SQ SCH (08:00)
[2017-09-15 08:23] LABS: ABSOLUTE EOSINOPHILS # (AUTO) 0.4 10^3/uL (0.0-0.6); ABSOLUTE LYMPHOCYTES (AUTO) 1.9 10^3/uL (0.5-4.7); ABSOLUTE MONOCYTES (AUTO) 0.6 10^3/uL (0.1-1.4); ABSOLUTE NEUT (AUTO) 3.9 10^3/uL (1.7-8.2); BASOPHILS % (AUTO) 0.4 % (0-2); EOSINOPHILS % (AUTO) 5.3 % (0-6); HEMATOCRIT 50.6 % (37.9-51.0); HEMOGLOBIN 17.2 g/dL (13.5-17.0); LYMPHOCYTES % (AUTO) 28.4 % (13-45); MEAN CORPUSCULAR HEMOGLOBIN 31.8 pg (27.0-33.4); MEAN CORPUSCULAR HGB CONC 33.9 g/dL (32.0-36.0); MEAN CORPUSCULAR VOLUME 94 fl (80-97); MONOCYTES % (AUTO) 8.7 % (3-13); PLATELET COUNT 119 10^3/uL (150-450); RED BLOOD COUNT 5.41 10^6/uL (4.35-5.55); RED CELL DISTRIBUTION WIDTH 13.5 % (11.5-14.0); SEGMENTED NEUTROPHILS % (AUTO) 57.2 % (42-78); TOTAL CELLS COUNTED % (AUTO) 100 %; WHITE BLOOD COUNT 6.8 10^3/uL (4.0-10.5)
[2017-09-15 08:39] LABS: ALANINE AMINOTRANSFERASE 32 U/L (21-72); ALBUMIN 4.1 g/dL (3.5-5.0); ALKALINE PHOSPHATASE 66 U/L (38-126); ANION GAP 14 (5-19); ASPARTATE AMINO TRANSFERASE 26 U/L (17-59); BILIRUBIN,DIRECT 0.3 mg/dL (0.0-0.4); BLOOD UREA NITROGEN 30 mg/dL (7-20); CALCIUM 9.5 mg/dL (8.4-10.2); CARBON DIOXIDE 27 mmol/L (22-30); CHLORIDE 103 mmol/L (98-107); CREATINE KINASE 48 U/L (55-170); GLUCOSE 122 mg/dL (75-110); POTASSIUM 4.2 mmol/L (3.6-5.0); TOTAL PROTEIN 7.1 g/dL (6.3-8.2)
[2017-09-15 08:45] LABS: CREATINE KINASE MB 1.34 ng/mL (<4.55); TROPONIN I 0.028 ng/mL
[2017-09-15] MEDS: NORMAL SALINE 1000 ML 1,000 ML IV PRN (09:02)
[2017-09-15] MEDS: FUROSEMIDE 40 MG TABLET PO SCH (09:03)
[2017-09-15] MEDS: APIXABAN 5 MG TABLET PO SCH (09:03)
--- NOTE | 2017-09-15 09:53 | XCELERA REPORT ---
[address] [address] Transthoracic Echocardiogram Report Name: OLE MENDEZ Age: 67 yrs Gender: Male : 1950 Patient Status: Inpatient Patient Location: [place] [address]^A Study Date: 09/14/2017 07:19 PM Height: 73 in Weight: 272 lb BSA: 2.5 m2 Procedure: A complete two-dimensional transthoracic echocardiogram was performed (2D, M-mode, spectral and color flow Doppler). The study was technically difficult with many images being suboptimal in quality. Reason For Study: chf/cad/aortic valve Ordering Physician: NIKO DAWN Performed By: Jazz Wang Interpretation Summary The left ventricular ejection fraction is normal. There is mild concentric left ventricular hypertrophy. The left ventricle is grossly normal size. Doppler measurements suggest pseudonormalized left ventricular relaxation, which is associated with grade II/IV or mild to moderate diastolic dysfunction Regional wall motion abnormalities cannot be excluded due to limited visualization. The right ventricle is mildly dilated. The right ventricle appears to be hypertrophied The right ventricular systolic function is normal. The right atrium is normal in size The left atrial size is normal. There is no mitral valve stenosis. There is a trace to mild amount of mitral regurgitation There is no aortic valve stenosis No aortic regurgitation is present. There is a trace or physiologic amount of tricuspid regurgitation Tricuspid regurgitation jet envelope not well defined to measure RV systolic pressure accurately. The aortic root is not well visualized but is probably normal size. The inferior vena cava appeared normal and decreased > 50% with respiration (RAP 5-10 mmHg) Minimal pericardial effusion. May consider mobile cardiac telemetry monitoring (MCT) for ruling out transient arrhythmias. MMode/2D Measurements & Calculations RVDd: 2.8 cm LVIDd: 5.2 cm FS: 32.2 % Ao root diam: 2.4 cm IVSd: 1.1 cm LVIDs: 3.5 cm EDV(Teich): 130.2 ml LVPWd: 0.99 cm ESV(Teich): 52.0 ml Ao root area: 4.4 cm2 EF(Teich): 60.0 % LA dimension: 4.1 cm Doppler Measurements & Calculations MV E max wil: MV P1/2t max wil: Ao V2 max: LV V1 max P.6 cm/sec 111.1 cm/sec 161.6 cm/sec 7.9 mmHg MV A max wil: MV P1/2t: 64.8 msec Ao max PG: LV V1 max: 27.6 cm/sec 10.4 mmHg 140.7 cm/sec MV E/A: 4.0 MVA(P1/2t): 3.4 cm2 MV dec slope: 501.9 cm/sec2 MV dec time: 0.22 sec PA V2 max: TR max wil: 69.6 cm/sec 217.2 cm/sec PA max PG: TR max P.9 mmHg 1.9 mmHg Left Ventricle The left ventricle is grossly normal size. There is mild concentric left ventricular hypertrophy. The left ventricular ejection fraction is normal. Doppler measurements suggest pseudonormalized left ventricular relaxation, which is associated with grade II/IV or mild to moderate diastolic dysfunction. Regional wall motion abnormalities cannot be excluded due to limited visualization. Right Ventricle The right ventricle is mildly dilated. The right ventricle appears to be hypertrophied. The right ventricular systolic function is normal. Atria The right atrium is normal in size. The left atrial size is normal. Interarterial septum not well visualized and not well dopplered. Cannot comment on ASD/PFO presence. Mitral Valve The mitral valve leaflets are sclerotic, but show no functional abnormalities. There is no mitral valve stenosis. There is a trace to mild amount of mitral regurgitation. Aortic Valve The aortic valve opens well. The aortic valve is not well visualized secondary to technical limitations. There is no aortic valve stenosis. No aortic regurgitation is present. Tricuspid Valve The tricuspid valve is not well visualized, but is grossly normal. There is no tricuspid stenosis. There is a trace or physiologic amount of tricuspid regurgitation. Tricuspid regurgitation jet envelope not well defined to measure RV systolic pressure accurately. Pulmonic Valve The pulmonic valve is not well visualized. Great Vessels The aortic root is not well visualized but is probably normal size. The inferior vena cava appeared normal and decreased > 50% with respiration (RAP 5-10 mmHg). Effusions Minimal pericardial effusion. Incidental Findings May consider mobile cardiac telemetry monitoring (MCT) for ruling out transient AFIB. : NIKO DAWN > Laureen Arenas
[2017-09-15] MEDS: INSULIN LISPRO 100 UNIT/ML 3 ML VIAL SUBCUT PRN ×3 (11:52→21:22)
--- NOTE | 2017-09-15 12:27 | PDOC PROGRESS REPORT ---
Subjective Progress Note for:: 09/15/17 Subjective:: Patient was admitted yesterday for evaluation of syncope spell, he complained of sensation of egg in his mouth, he is probably refluxing stomach contents, barium swallow is ordered. He was seen by cardiology scheduled for a stress test Reason For Visit: SYNCOPAL EPISODE Physical Exam Vital Signs: Temp Pulse Resp BP Pulse Ox 97.4 F 50 L 18 116/75 98 09/15/17 07:35 09/15/17 07:35 09/15/17 07:35 09/15/17 07:35 09/15/17 07:35 Intake & Output 09/14/17 09/15/17 09/16/17 06:59 06:59 06:59 Intake Total 1050 440 Output Total 1100 Balance -50 440 Weight 123.9 kg General appearance: PRESENT: no acute distress Eye exam: PRESENT: PERRLA Respiratory exam: PRESENT: clear to auscultation rizwana Cardiovascular exam: PRESENT: +S1, +S2 GI/Abdominal exam: PRESENT: soft Neurological exam: PRESENT: alert Results Laboratory Results: 09/15/17 07:44 09/15/17 07:44 09/15/17 09/15/17 07:44 07:44 WBC 6.8 RBC 5.41 Hgb 17.2 H Hct 50.6 MCV 94 MCH 31.8 MCHC 33.9 RDW 13.5 Plt Count 119 L Seg Neutrophils % 57.2 Lymphocytes % 28.4 Monocytes % 8.7 Eosinophils % 5.3 Basophils % 0.4 Absolute Neutrophils 3.9 Absolute Lymphocytes 1.9 Absolute Monocytes 0.6 Absolute Eosinophils 0.4 Absolute Basophils 0.0 Sodium 144.0 Potassium 4.2 Chloride 103 Carbon Dioxide 27 Anion Gap 14 BUN 30 H Creatinine 1.31 H Est GFR ( Amer) > 60 Est GFR (Non-Af Amer) 55 L Glucose 122 H Calcium 9.5 Magnesium 2.1 Total Bilirubin 1.0 AST 26 ALT 32 Alkaline Phosphatase 66 Total Protein 7.1 Albumin 4.1 09/14/17 09/15/17 09/15/17 16:55 01:23 01:23 Creatine Kinase 46 L CK-MB (CK-2) 1.21 Troponin I 0.033 0.026 NT-Pro-B Natriuret Pep 09/15/17 09/15/17 07:44 07:44 Creatine Kinase 48 L CK-MB (CK-2) 1.34 Troponin I 0.028 NT-Pro-B Natriuret Pep 179 Impressions: Carotid Doppler Study 09/14/17 00:00 IMPRESSION: Calcified atherosclerotic plaque results in 50 to 69% stenosis of the right internal carotid artery and less than 50% stenosis of the left internal carotid artery. Cervical Spine X-Ray 09/14/17 11:58 IMPRESSION: 1. Cervical, thoracic and lumbar spine degenerative changes without fracture or malalignment. Head CT 09/14/17 11:58 IMPRESSION: NORMAL BRAIN CT WITHOUT CONTRAST. EVIDENCE OF ACUTE STROKE: NO. Lumbar Spine X-Ray 09/14/17 11:58 IMPRESSION: 1. Cervical, thoracic and lumbar spine degenerative changes without fracture or malalignment. Thoracic Spine X-Ray 09/14/17 11:58 IMPRESSION: 1. Cervical, thoracic and lumbar spine degenerative changes without fracture or malalignment. Chest X-Ray 09/14/17 13:31 IMPRESSION: HEART ENLARGED WITHOUT FAILURE. NO OTHER SIGNIFICANT RADIOGRAPHIC FINDING IN THE CHEST. Chest/Abdomen CTA 09/14/17 14:39 IMPRESSION: 1. No evidence of thoracic or abdominal aortic aneurysm or dissection. 2. No acute or suspicious thoracic or abdominal abnormality. Assessment & Plan - Diagnosis (1) Syncopal episodes Qualifiers: Syncope type: unspecified Qualified Code(s): R55 - Syncope and collapse Is this a current diagnosis for this admission?: Yes (2) Esophageal reflux Is this a current diagnosis for this admission?: Yes Plan: Barium studies ordered
[2017-09-15] MEDS ORDERED: SPIRONOLACTONE 25 MG TABLET PO ONE (13:00)
[2017-09-15] MEDS: ASPIRIN 81 MG TABLET, ENT COATED PO SCH (13:22)
[2017-09-15 15:01] LABS: CREATINE KINASE MB 1.26 ng/mL (<4.55); TROPONIN I 0.02 ng/mL
--- NOTE | 2017-09-15 15:05 | PDOC PROGRESS REPORT ---
Subjective Progress Note for:: 09/15/17 Subjective:: Patient denies any recurrence of syncope. Telemetry strips reviewed showed no significant tacky or bradycardia episodes. Patient maintaining atrial fibrillation. Patient seems to be doing better with now complaints of some back pain.. Pt is denying any chest arm or neck discomfort. Patient denying any PND, orthopnea. Patient denied any sustained palpitations, dizziness, syncope, near syncope. Patient denying any fever chills. Patient denying any other significant discomfort. Review of systems: Rest review of systems negative. Medications: Medications have been reviewed. Reason For Visit: SYNCOPAL EPISODE Physical Exam Vital Signs: Temp Pulse Resp BP Pulse Ox 98.1 F 79 18 114/65 98 09/15/17 10:59 09/15/17 14:00 09/15/17 10:59 09/15/17 10:59 09/15/17 10:59 Intake & Output 09/14/17 09/15/17 09/16/17 06:59 06:59 06:59 Intake Total 1050 440 Output Total 1100 Balance -50 440 Weight 123.9 kg Exam: GENERAL: well-nourished and in no acute distress. Alert and oriented x3 HEAD: Atraumatic, normocephalic. EYES: Pupils equal round and reactive to light, extraocular movements intact, sclera anicteric, conjunctiva are normal. ENT: TMs normal, nares patent, oropharynx clear without exudates. Moist mucous membranes. No oral ulcerations or bleeding gums noted NECK: supple without lymphadenopathy. Trachea is central. No cervical or axillary lymphadenopathy noted. Carotids are 2+, JVD WNL LUNGS: Respiration seems nonlabored, no significant accessory muscle action noted. Breath sounds clear to auscultation bilaterally and equal noted. No wheezes rales or rhonchi noted. No significant dullness noted on percussion. CHEST: Palpation of the chest wall shows no significant chest wall tenderness. 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 ABDOMEN: Soft, no significant tenderness appreciated, normoactive bowel sounds. No guarding, no rebound. No rigidity noted . No masses appreciated. EXTREMITIES: Pedal pulses are 1-2+, no calf tenderness noted. No clubbing or cyanosis. Trace to 1+ pedal edema noted NEUROLOGICAL: Focused neurological exam showed no significant neurologic deficit. Normal speech, no focal weakness appreciated. PSYCH: Normal mood, normal affect. Judgment and insight within normal limits. SKIN: No significant ecchymosis, skin is noted to be warm. MUSCULOSKELETAL EXAM: No significant acute joint swelling noted. Results Laboratory Results: 09/15/17 07:44 09/15/17 07:44 09/15/17 09/15/17 07:44 07:44 WBC 6.8 RBC 5.41 Hgb 17.2 H Hct 50.6 MCV 94 MCH 31.8 MCHC 33.9 RDW 13.5 Plt Count 119 L Seg Neutrophils % 57.2 Lymphocytes % 28.4 Monocytes % 8.7 Eosinophils % 5.3 Basophils % 0.4 Absolute Neutrophils 3.9 Absolute Lymphocytes 1.9 Absolute Monocytes 0.6 Absolute Eosinophils 0.4 Absolute Basophils 0.0 Sodium 144.0 Potassium 4.2 Chloride 103 Carbon Dioxide 27 Anion Gap 14 BUN 30 H Creatinine 1.31 H Est GFR ( Amer) > 60 Est GFR (Non-Af Amer) 55 L Glucose 122 H Calcium 9.5 Magnesium 2.1 Total Bilirubin 1.0 AST 26 ALT 32 Alkaline Phosphatase 66 Total Protein 7.1 Albumin 4.1 09/14/17 09/15/17 09/15/17 16:55 01:23 01:23 Creatine Kinase 46 L CK-MB (CK-2) 1.21 Troponin I 0.033 0.026 NT-Pro-B Natriuret Pep 09/15/17 09/15/17 09/15/17 07:44 07:44 14:10 Creatine Kinase 48 L 44 L CK-MB (CK-2) 1.34 Troponin I 0.028 NT-Pro-B Natriuret Pep 179 EKG Comments: Telemetry shows sinus rhythm without any sustained tachycardia or bradycardia. Impressions: Carotid Doppler Study 09/14/17 00:00 IMPRESSION: Calcified atherosclerotic plaque results in 50 to 69% stenosis of the right internal carotid artery and less than 50% stenosis of the left internal carotid artery. Cervical Spine X-Ray 09/14/17 11:58 IMPRESSION: 1. Cervical, thoracic and lumbar spine degenerative changes without fracture or malalignment. Head CT 09/14/17 11:58 IMPRESSION: NORMAL BRAIN CT WITHOUT CONTRAST. EVIDENCE OF ACUTE STROKE: NO. Lumbar Spine X-Ray 09/14/17 11:58 IMPRESSION: 1. Cervical, thoracic and lumbar spine degenerative changes without fracture or malalignment. Thoracic Spine X-Ray 09/14/17 11:58 IMPRESSION: 1. Cervical, thoracic and lumbar spine degenerative changes without fracture or malalignment. Chest X-Ray 09/14/17 13:31 IMPRESSION: HEART ENLARGED WITHOUT FAILURE. NO OTHER SIGNIFICANT RADIOGRAPHIC FINDING IN THE CHEST. Chest/Abdomen CTA 09/14/17 14:39 IMPRESSION: 1. No evidence of thoracic or abdominal aortic aneurysm or dissection. 2. No acute or suspicious thoracic or abdominal abnormality. Assessment & Plan - Diagnosis (1) Syncopal episodes Qualifiers: Syncope type: unspecified Qualified Code(s): R55 - Syncope and collapse Is this a current diagnosis for this admission?: Yes (2) Aortic valve replaced Is this a current diagnosis for this admission?: Yes (3) Chronic a-fib Is this a current diagnosis for this admission?: Yes (4) Coronary artery disease Qualifiers: Coronary Disease-Associated Artery/Lesion type: [place] artery Is this a current diagnosis for this admission?: Yes (5) Hyperlipidemia Qualifiers: Hyperlipidemia type: unspecified Qualified Code(s): E78.5 - Hyperlipidemia , unspecified Is this a current diagnosis for this admission?: Yes (6) Hypertension Qualifiers: Hypertension type: essential hypertension Qualified Code(s): I10 - Essential (primary) hypertension Is this a current diagnosis for this admission?: Yes (7) Type 2 diabetes mellitus Qualifiers: Diabetes mellitus 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 Patient scheduled for nuclear stress test. Recommend orthostatic blood pressures. Syncope: Various differential diagnosis discussed about reasons of syncopal spell. 2D echo results reviewed with the patient. [place] that apex was not well visualized. Have a schedule patient for a nuclear stress test. Risk benefits were discussed. Explained need for continuing monitoring. Possible discharge on Sunday on a event monitor. Aortic valve, bioprosthetic: Seems to be functioning normally. Chronic A. fib: Recommend rate control and continuation of chronic anticoagulation. Coronary artery disease: Currently symptomatically stable. Patient to report any recurrence of chest pain. Dyslipidemia: Continue hypotensive statin therapy. Hypertension: Currently reasonably controlled. Consider obtaining orthostatic blood pressures. Diabetes: Currently being well managed by patient's web architect. - Time Time with patient: Greater than 35 minutes - CODE STATUS was discussed, patient remains full code. Surrogate decision-maker unchanged. Multiple medical problems were addressed. More than 50% of the time spent coordinating care, discussing management plans with involved caregivers. Management plans discussed with involved personnels. Medical decision making was of moderate to high complexity, patient's has multiple comorbidities. Medications reviewed and adjusted accordingly: Yes
[2017-09-15] MEDS ORDERED: LOSARTAN POTASSIUM 25 MG TABLET PO SCH (22:00)
[2017-09-16] MEDS: OXYCODONE-ACETAMINOPHEN 5-325 MG TABLET PO PRN (03:08)
[2017-09-16 07:44] LABS: ABSOLUTE EOSINOPHILS # (AUTO) 0.4 10^3/uL (0.0-0.6); ABSOLUTE LYMPHOCYTES (AUTO) 2.1 10^3/uL (0.5-4.7); ABSOLUTE MONOCYTES (AUTO) 0.6 10^3/uL (0.1-1.4); BASOPHILS % (AUTO) 0.6 % (0-2); HEMATOCRIT 47.5 % (37.9-51.0); HEMOGLOBIN 16.3 g/dL (13.5-17.0); MEAN CORPUSCULAR HEMOGLOBIN 31.8 pg (27.0-33.4); MEAN CORPUSCULAR HGB CONC 34.3 g/dL (32.0-36.0); MEAN CORPUSCULAR VOLUME 93 fl (80-97); MONOCYTES % (AUTO) 8.9 % (3-13); PLATELET COUNT 111 10^3/uL (150-450); RED BLOOD COUNT 5.13 10^6/uL (4.35-5.55); RED CELL DISTRIBUTION WIDTH 13.5 % (11.5-14.0); SEGMENTED NEUTROPHILS % (AUTO) 56.5 % (42-78); TOTAL CELLS COUNTED % (AUTO) 100 %; WHITE BLOOD COUNT 7.1 10^3/uL (4.0-10.5)
[2017-09-16] MEDS ORDERED: SPIRONOLACTONE 25 MG TABLET PO SCH (08:00)
[2017-09-16] MEDS: APIXABAN 5 MG TABLET PO SCH (10:12)
[2017-09-16] MEDS: FUROSEMIDE 40 MG TABLET PO SCH (10:12)
[2017-09-16] MEDS: ASPIRIN 81 MG TABLET, ENT COATED PO SCH (13:32)
[2017-09-16] MEDS: CARVEDILOL 3.125 MG TABLET PO SCH (13:32)
[2017-09-16] MEDS: INSULIN LISPRO 100 UNIT/ML 3 ML VIAL SUBCUT PRN ×2 (13:41→17:59)
[2017-09-16] MEDS ORDERED: REGADENOSON INJ 0.4 MG/5 ML DISP.SYRIN IV ONE (14:19)
--- NOTE | 2017-09-16 14:43 | PDOC PROGRESS REPORT ---
Subjective Progress Note for:: 09/16/17 Subjective:: Patient had Cardiolite Lexiscan stress test today, yesterday barium swallow was ordered but it was not done Reason For Visit: SYNCOPAL EPISODE Physical Exam Vital Signs: Temp Pulse Resp BP Pulse Ox 97.8 F 67 18 107/56 L 98 09/16/17 07:36 09/16/17 07:36 09/16/17 07:36 09/16/17 07:36 09/16/17 07:36 Intake & Output 09/15/17 09/16/17 09/17/17 06:59 06:59 06:59 Intake Total 1050 2865 200 Output Total 1100 2204 625 Balance -50 661 -425 Weight 123.9 kg 129 kg Ear exam: PRESENT: normal external ear exam Mouth exam: PRESENT: moist, tongue midline Neck exam: PRESENT: full ROM Respiratory exam: PRESENT: clear to auscultation rizwana Cardiovascular exam: PRESENT: RRR, +S1, +S2 Pulses: PRESENT: normal dorsalis pedis pul, +2 pedal pulses bilateral Vascular exam: PRESENT: normal capillary refill GI/Abdominal exam: PRESENT: normal bowel sounds, soft Rectal exam: PRESENT: deferred Neurological exam: PRESENT: alert Psychiatric exam: PRESENT: appropriate affect, normal mood Skin exam: PRESENT: dry, intact, warm Results Laboratory Results: 09/16/17 07:20 09/15/17 07:44 09/16/17 07:20 WBC 7.1 RBC 5.13 Hgb 16.3 Hct 47.5 MCV 93 MCH 31.8 MCHC 34.3 RDW 13.5 Plt Count 111 L Seg Neutrophils % 56.5 Lymphocytes % 29.0 Monocytes % 8.9 Eosinophils % 5.0 Basophils % 0.6 Absolute Neutrophils 4.0 Absolute Lymphocytes 2.1 Absolute Monocytes 0.6 Absolute Eosinophils 0.4 Absolute Basophils 0.0 09/14/17 09/15/17 09/15/17 16:55 01:23 01:23 Creatine Kinase 46 L CK-MB (CK-2) 1.21 Troponin I 0.033 0.026 NT-Pro-B Natriuret Pep 09/15/17 09/15/17 09/15/17 07:44 07:44 14:10 Creatine Kinase 48 L 44 L CK-MB (CK-2) 1.34 Troponin I 0.028 NT-Pro-B Natriuret Pep 179 09/15/17 14:10 Creatine Kinase CK-MB (CK-2) 1.26 Troponin I 0.020 NT-Pro-B Natriuret Pep Impressions: Carotid Doppler Study 09/14/17 00:00 IMPRESSION: Calcified atherosclerotic plaque results in 50 to 69% stenosis of the right internal carotid artery and less than 50% stenosis of the left internal carotid artery. Cervical Spine X-Ray 09/14/17 11:58 IMPRESSION: 1. Cervical, thoracic and lumbar spine degenerative changes without fracture or malalignment. Head CT 09/14/17 11:58 IMPRESSION: NORMAL BRAIN CT WITHOUT CONTRAST. EVIDENCE OF ACUTE STROKE: NO. Lumbar Spine X-Ray 09/14/17 11:58 IMPRESSION: 1. Cervical, thoracic and lumbar spine degenerative changes without fracture or malalignment. Thoracic Spine X-Ray 09/14/17 11:58 IMPRESSION: 1. Cervical, thoracic and lumbar spine degenerative changes without fracture or malalignment. Chest X-Ray 09/14/17 13:31 IMPRESSION: HEART ENLARGED WITHOUT FAILURE. NO OTHER SIGNIFICANT RADIOGRAPHIC FINDING IN THE CHEST. Chest/Abdomen CTA 09/14/17 14:39 IMPRESSION: 1. No evidence of thoracic or abdominal aortic aneurysm or dissection. 2. No acute or suspicious thoracic or abdominal abnormality. Assessment & Plan - Diagnosis (1) Syncopal episodes Qualifiers: Syncope type: unspecified Qualified Code(s): R55 - Syncope and collapse Is this a current diagnosis for this admission?: Yes (2) Esophageal reflux Is this a current diagnosis for this admission?: Yes
--- NOTE | 2017-09-16 15:00 | DRAGON STRESS TEST REPORT ---
INTRAVENOUS LEXISCAN CARDIOLITE STRESS TEST USING SINGLE PHOTON EMMISION COMPUTERIZED TOMOGRAPHIC. DATE OF PROCEDURE: September 16, 2017, INDICATION : Syncope CARDIAC RISK FACTORS: History of CAD RESTING EKG: Atrial fibrillation, no baseline ST segment changes noted, VPCs reported STRESS EKG: No significant ST segment changes noted with LexiScan bolus REASON FOR TERMINATION: Protocol. PROCEDURE REPORT: Baseline heart rate 90 beats per minute with blood pressure of 93/75. Patient had no significant complaints. Patient was bolused with Lexiscan 0.4 mg intravenously followed by saline bolus. Heart rate at 2 minutes post bolus 115 with a blood pressure of 104/80. 3 minutes post bolus heart rate 108 with blood pressure of 93/66. No significant EKG changes were noted. Patient had no significant complaints during the procedure or postprocedure. CONCLUSIONS: Normal EKG and hemodynamic response to IV LexiScan. NUCLEAR DATA: At rest the patient was given 15.96 millicuries of technetium 99 sestamibi injected intravenously. As per protocol rest gated SPECT images were obtained. On day of stress test, the patient was given intravenous LexiScan at a dose of 0.4 mg in 5 mL intravenously, followed by flush with normal saline. Subsequently the stress dose of 31.8 millicuries of technetium 99 sestamibi was injected intravenously. As per protocol stress gated images were obtained. NUCLEAR INTERPRETATION: Both raw and processed data were used for interpretation. Visual, qualitative, computer-generated quantitative data was used. There was suboptimal myocardial uptake of technetium compound. Motion artifact and soft tissue attenuations were noted. Increased visceral uptake was noted. Image quality was technically suboptimal, therefore cannot be definitive about comments. Cannot rule out or rule in ischemia or previous fixed defect with any certainty. Probable moderate fixed defect mid anterior wall, mid lateral wall and mid inferior wall, however this such findings could well be artifactual. EKG gated imaging showed LV EF at 31 %, however this seems to have been significant getting issues therefore probably falsely low. T. I D. ratio was 1.08. Lung heart ratio noted to be within normal limits 0.41. No significant extracardiac and abnormal radiotracer activities were noted. RV free wall uptake was noted to be WNL. IMPRESSION: Also refer to comments under nuclear interpretation. Also test results needs to be interpreted in the context of pretest probability. 1. Image quality was technically suboptimal, therefore cannot be definitive about comments. Cannot rule out or rule in ischemia or previous fixed defect with any certainty. Probable moderate fixed defect mid anterior wall, mid lateral wall and mid inferior wall, however this such findings could well be artifactual. 2. EKG gated imaging shows left ventricular ejection fraction of approx. 31 %, however felt to be falsely low because of getting issues.. 3. Overall inadequate imaging. Recommend further evaluation as is clinically indicated which may include cardiac MRI stress, PET CT stress. RECOMMENDATIONS: Aggressive risk factor modification and medical management. Further evaluation may be needed if continued symptoms or other high risk indicators are noted on clinical evaluation. Close cardiology follow-up is also recommended. Clinical correlation with echocardiogram derived ejection fraction. Inability to exercise by itself can lead to increased cardiovascular event risks. Consider cardiology consultation and or follow-up if clinically indicated. I am available for cardiology evaluation and consultation if requested by the polls or surveys interviewer, unless patient already has a spiritual counselor. Dr. Piedad Arenas. MRCP Board certified in cardiology and sleep medicine. Board certified in nuclear cardiology, adult echocardiography. [facility]
--- NOTE | 2017-09-16 16:53 | PDOC PROGRESS REPORT ---
Subjective Progress Note for:: 09/16/17 Subjective:: Patient denies any recurrence of syncope. Telemetry strips reviewed showed no significant tachy or bradycardia episodes. Patient maintaining atrial fibrillation. Patient seems to be doing better with now complaints of some back pain.. Pt is denying any chest arm or neck discomfort. Patient denying any PND, orthopnea. Patient denied any sustained palpitations, dizziness, syncope, near syncope. Patient denying any fever chills. Patient denying any other significant discomfort. Patient did undergo nuclear stress test without any complications. 2D echocardiogram results were reviewed. Review of systems: Rest review of systems negative. Medications: Medications have been reviewed. Reason For Visit: SYNCOPAL EPISODE Physical Exam Vital Signs: Temp Pulse Resp BP Pulse Ox 97.8 F 67 18 107/56 L 98 09/16/17 07:36 09/16/17 07:36 09/16/17 07:36 09/16/17 07:36 09/16/17 07:36 Intake & Output 09/15/17 09/16/17 09/17/17 06:59 06:59 06:59 Intake Total 1050 2865 200 Output Total 1100 2204 625 Balance -50 661 -425 Weight 123.9 kg 129 kg Exam: GENERAL: well-nourished and in no acute distress. Alert and oriented x3 HEAD: Atraumatic, normocephalic. EYES: Pupils equal round and reactive to light, extraocular movements intact, sclera anicteric, conjunctiva are normal. ENT: TMs normal, nares patent, oropharynx clear without exudates. Moist mucous membranes. No oral ulcerations or bleeding gums noted NECK: supple without lymphadenopathy. Trachea is central. No cervical or axillary lymphadenopathy noted. Carotids are 2+, JVD WNL LUNGS: Respiration seems nonlabored, no significant accessory muscle action noted. Breath sounds clear to auscultation bilaterally and equal noted. No wheezes rales or rhonchi noted. No significant dullness noted on percussion. CHEST: Palpation of the chest wall shows no significant chest wall tenderness. 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 ABDOMEN: Soft, no significant tenderness appreciated, normoactive bowel sounds. No guarding, no rebound. No rigidity noted . No masses appreciated. EXTREMITIES: Pedal pulses are 1-2+, no calf tenderness noted. No clubbing or cyanosis. Trace to 1+ pedal edema noted NEUROLOGICAL: Focused neurological exam showed no significant neurologic deficit. Normal speech, no focal weakness appreciated. PSYCH: Normal mood, normal affect. Judgment and insight within normal limits. SKIN: No significant ecchymosis, skin is noted to be warm. MUSCULOSKELETAL EXAM: No significant acute joint swelling noted. Results Laboratory Results: 09/16/17 07:20 09/15/17 07:44 09/16/17 07:20 WBC 7.1 RBC 5.13 Hgb 16.3 Hct 47.5 MCV 93 MCH 31.8 MCHC 34.3 RDW 13.5 Plt Count 111 L Seg Neutrophils % 56.5 Lymphocytes % 29.0 Monocytes % 8.9 Eosinophils % 5.0 Basophils % 0.6 Absolute Neutrophils 4.0 Absolute Lymphocytes 2.1 Absolute Monocytes 0.6 Absolute Eosinophils 0.4 Absolute Basophils 0.0 09/14/17 09/15/17 09/15/17 16:55 01:23 01:23 Creatine Kinase 46 L CK-MB (CK-2) 1.21 Troponin I 0.033 0.026 NT-Pro-B Natriuret Pep 09/15/17 09/15/17 09/15/17 07:44 07:44 14:10 Creatine Kinase 48 L 44 L CK-MB (CK-2) 1.34 Troponin I 0.028 NT-Pro-B Natriuret Pep 179 09/15/17 14:10 Creatine Kinase CK-MB (CK-2) 1.26 Troponin I 0.020 NT-Pro-B Natriuret Pep EKG Comments: Shows atrial fibrillation with occasional VPCs. Impressions: Carotid Doppler Study 09/14/17 00:00 IMPRESSION: Calcified atherosclerotic plaque results in 50 to 69% stenosis of the right internal carotid artery and less than 50% stenosis of the left internal carotid artery. Cervical Spine X-Ray 09/14/17 11:58 IMPRESSION: 1. Cervical, thoracic and lumbar spine degenerative changes without fracture or malalignment. Head CT 09/14/17 11:58 IMPRESSION: NORMAL BRAIN CT WITHOUT CONTRAST. EVIDENCE OF ACUTE STROKE: NO. Lumbar Spine X-Ray 09/14/17 11:58 IMPRESSION: 1. Cervical, thoracic and lumbar spine degenerative changes without fracture or malalignment. Thoracic Spine X-Ray 09/14/17 11:58 IMPRESSION: 1. Cervical, thoracic and lumbar spine degenerative changes without fracture or malalignment. Chest X-Ray 09/14/17 13:31 IMPRESSION: HEART ENLARGED WITHOUT FAILURE. NO OTHER SIGNIFICANT RADIOGRAPHIC FINDING IN THE CHEST. Chest/Abdomen CTA 09/14/17 14:39 IMPRESSION: 1. No evidence of thoracic or abdominal aortic aneurysm or dissection. 2. No acute or suspicious thoracic or abdominal abnormality. Assessment & Plan - Diagnosis (1) Syncopal episodes Qualifiers: Syncope type: unspecified Qualified Code(s): R55 - Syncope and collapse Is this a current diagnosis for this admission?: Yes (2) Aortic valve replaced Is this a current diagnosis for this admission?: Yes (3) Chronic a-fib Is this a current diagnosis for this admission?: Yes (4) Coronary artery disease Qualifiers: Coronary Disease-Associated Artery/Lesion type: [place] artery Is this a current diagnosis for this admission?: Yes (5) Hyperlipidemia Qualifiers: Hyperlipidemia type: unspecified Qualified Code(s): E78.5 - Hyperlipidemia , unspecified Is this a current diagnosis for this admission?: Yes (6) Hypertension Qualifiers: Hypertension type: essential hypertension Qualified Code(s): I10 - Essential (primary) hypertension Is this a current diagnosis for this admission?: Yes (7) Type 2 diabetes mellitus Qualifiers: Diabetes mellitus care home insulin use: unspecified emt intermediate insulin use status Chronic kidney disease stage: stage 3 (moderate) Is this a current diagnosis for this admission?: Yes - Notes Notes: Had a long discussion with patient and his regarding symptom of syncope. Varies differential diagnosis discussed. 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 Patient claims that it was hot that day. Patient claims that he was most likely dehydrated and passed out because of that. Discussed that this could be a likely scenario however in patients with structural heart disease, serious causes would need to be ruled out such as ventricular tachyarrhythmias, tachybradycardia episode etc. discussed various diagnostic and therapeutic options with patient and his . The best option would be to discharge patient on a cardiac event monitor. Other option such as invasive electrophysiological study was also discussed with the patient. Since this was patient's first syncope and since EF is noted to be relatively well- preserved, it was felt that this benefit may not favor this. However it is worthwhile to discuss this with patient's primary care glass forming engineer Dr. Bradley. I plan to give him a call on Sunday. Patient does want to be discharged but is willing to stay overnight. Also felt that carvedilol may not be controlling his heart rate well enough therefore have switched him to metoprolol succinate. Patient advised to report any further problems. Discussed importance of compliance with CPAP therapy. Discussed that proper treatment of sleep apnea reduce his chances of recurrent syncope. 2D echo results reviewed with the patient. Nuclear stress test results were reviewed with the patient but study results were very suboptimal because of suboptimal imaging. As noted in the report, patient will benefit from either MRI a stress on a PET CT is stress. Syncope: Various differential diagnosis discussed about reasons of syncopal spell. 2D echo results reviewed with the patient. [place] that apex was not well visualized. Explained need for continuing monitoring. Recommend discharge on Sunday on a event monitor. Aortic valve, bioprosthetic: Seems to be functioning normally. Chronic A. fib: Recommend rate control and continuation of chronic anticoagulation. Coronary artery disease: Currently symptomatically stable. Patient to report any recurrence of chest pain. Dyslipidemia: Continue hypotensive statin therapy. Hypertension: Currently reasonably controlled. Consider obtaining orthostatic blood pressures. 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 - Time Time with patient: Greater than 35 minutes - CODE STATUS was discussed, patient remains full code. Surrogate decision-maker unchanged. Multiple medical problems were addressed. More than 50% of the time spent coordinating care, discussing management plans with involved caregivers. Management plans discussed with involved personnels. Medical decision making was of moderate to high complexity, patient's has multiple comorbidities. Medications reviewed and adjusted accordingly: Yes
[2017-09-16] MEDS ORDERED: CYCLOBENZAPRINE HCL 10 MG TABLET PO PRN (17:11)
[2017-09-16 17:48] VITALS: BP 120/85
[2017-09-16] MEDS: METOPROLOL SUCCINATE 25 MG TAB.SR.24H PO SCH ×2 (17:48→18:19)
[2017-09-16] MEDS ORDERED: DOCUSATE SODIUM 100 MG CAPSULE PO SCH (18:00)
[2017-09-16] MEDS ORDERED: METOPROLOL SUCCINATE 25 MG TAB.SR.24H PO SCH (18:00)
--- NOTE | 2017-09-19 14:54 | PDOC DISCHARGE SUMMARY ---
General - Admit/Disc Date/PCP Admission Date/Primary Care Provider: 09/14/17 16:24 NIKO DAWN MD Discharge Date: 09/16/17 - Discharge Diagnosis (1) Syncopal episodes Is this a current diagnosis for this admission?: Yes (2) Esophageal reflux Is this a current diagnosis for this admission?: Yes - Additional Information Home Medications: Apixaban [Eliquis] 5 mg PO Q12 09/14/17 Aspirin [Ecotrin 81 mg EC Tablet] 81 mg PO DAILY 09/14/17 Carvedilol [Carvedilol] 3.125 mg PO Q12 09/14/17 Furosemide [Lasix 40 mg Tablet] 40 mg PO DAILY 09/14/17 Liraglutide [Victoza 2-Nelson] 1.2 ml SQ QAM 09/14/17 Losartan Potassium [Cozaar 25 mg Tablet] 25 mg PO QHS 09/14/17 Pravastatin Sodium [Pravastatin Sodium] 5 mg PO MOWEFR 09/14/17 Spironolactone [Spironolactone] 25 mg PO QAM 09/14/17 History of Present Illness History of Present Illness: OLE MENDEZ is a 67 year old male, he was admitted was admitted for evaluation of syncope spell, Hospital Course Hospital Course: Patient was admitted by Dr. Dawn for evaluation of syncope, he was seen in consultation by Dr. Arenas cardiology, he had a stress test done today but he left AMA before care was complete Physical Exam Vital Signs: Temp Pulse Resp BP Pulse Ox 98.2 F 103 H 18 120/85 99 09/16/17 15:23 09/16/17 15:23 09/16/17 15:23 09/16/17 15:23 09/16/17 15:23 Results Laboratory Results: 09/16/17 07:20 09/15/17 07:44 09/14/17 09/15/17 09/15/17 16:55 01:23 01:23 Creatine Kinase 46 L CK-MB (CK-2) 1.21 Troponin I 0.033 0.026 NT-Pro-B Natriuret Pep 09/15/17 09/15/17 09/15/17 07:44 07:44 14:10 Creatine Kinase 48 L 44 L CK-MB (CK-2) 1.34 Troponin I 0.028 NT-Pro-B Natriuret Pep 179 09/15/17 14:10 Creatine Kinase CK-MB (CK-2) 1.26 Troponin I 0.020 NT-Pro-B Natriuret Pep Impressions: Carotid Doppler Study 09/14/17 00:00 IMPRESSION: Calcified atherosclerotic plaque results in 50 to 69% stenosis of the right internal carotid artery and less than 50% stenosis of the left internal carotid artery. Cervical Spine X-Ray 09/14/17 11:58 IMPRESSION: 1. Cervical, thoracic and lumbar spine degenerative changes without fracture or malalignment. Head CT 09/14/17 11:58 IMPRESSION: NORMAL BRAIN CT WITHOUT CONTRAST. EVIDENCE OF ACUTE STROKE: NO. Lumbar Spine X-Ray 09/14/17 11:58 IMPRESSION: 1. Cervical, thoracic and lumbar spine degenerative changes without fracture or malalignment. Thoracic Spine X-Ray 09/14/17 11:58 IMPRESSION: 1. Cervical, thoracic and lumbar spine degenerative changes without fracture or malalignment. Chest X-Ray 09/14/17 13:31 IMPRESSION: HEART ENLARGED WITHOUT FAILURE. NO OTHER SIGNIFICANT RADIOGRAPHIC FINDING IN THE CHEST. Chest/Abdomen CTA 09/14/17 14:39 IMPRESSION: 1. No evidence of thoracic or abdominal aortic aneurysm or dissection. 2. No acute or suspicious thoracic or abdominal abnormality. Qualifiers - * PATIENT BEING DISCHARGED WITH ANY OF THE FOLLOWING DIAGNOSIS: No Plan Discharge Plan: Patient left AMA
== END 2017-09-16 18:30 | disposition left against medical advice (07) | DRG 312 ==
LOC: ER 11:29 → EH 16:24 → 3N 22:02
PROVIDERS: ADMIT Family Medicine; ATTEND Family Medicine
DX: R55 Syncope and collapse (principal); I13.0 Hypertensive heart and chronic kidney disease with heart failure and stage 1 through stage 4 chronic kidney disease, or unspecified chronic kidney disease; I48.2 Chronic atrial fibrillation; I50.9 Heart failure, unspecified; G47.33 Obstructive sleep apnea (adult) (pediatric); E78.00 Pure hypercholesterolemia, unspecified; M62.830 Muscle spasm of back; I25.10 Atherosclerotic heart disease of native coronary artery without angina pectoris; E78.5 Hyperlipidemia, unspecified; K21.9 Gastro-esophageal reflux disease without esophagitis; N18.3 Chronic kidney disease, stage 3 (moderate); E11.22 Type 2 diabetes mellitus with diabetic chronic kidney disease; Z91.81 History of falling; Z79.02 Long term (current) use of antithrombotics/antiplatelets; Z87.891 Personal history of nicotine dependence; Z95.2 Presence of prosthetic heart valve; Z95.5 Presence of coronary angioplasty implant and graft; I25.2 Old myocardial infarction
CPT/HCPCS: 36415; 70450; 71045; 71275; 72050; 72070; 72110; 74175; 78452; 80053; 80307; 81001; 82550; 82553; 82962; 83735; 83880; 84484; 85025; 93005; 93010; 93017; 93306; 93880; 96361; 96374; 99285; A9500; J1815; J2785; J3010; J7030; J7120

== ENCOUNTER → 2017-09-28 | Outpatient (CLI) | payer MEDICARE, OTHER ==
--- NOTE | 2017-09-28 12:02 | RADIOLOGY REPORT (SQ) ---
EXAM DESCRIPTION: U/S ABDOMEN LIMITED W/O DOP COMPLETED DATE/TIME: 09/28/2017 9:09 am REASON FOR STUDY: CALCULUS OF GALLBLADDER W/O CHOLECYSTITIS W/O OBSTRUCTION K80.20 CALCULUS OF GALL BLADDER W/O CHOLECYSTITIS W/O OBSTRUC COMPARISON: None. TECHNIQUE: Dynamic and static grayscale images acquired of the abdomen and recorded on PACS. Additio nal selected color Doppler and spectral images recorded. LIMITATIONS: Body habitus. Bowel gas. FINDINGS: PANCREAS: No masses. Visualized pancreatic duct normal caliber. LIVER: 17.7 cm. Increased echogenicity. LIVER VASCULATURE: Normal directional flow of the main portal vein and hepatic veins. GALLBLADDER: Poorly seen. ULTRASOUND-DETECTED WHITLOCK'S SIGN: Negative. INTRAHEPATIC DUCTS AND COMMON DUCT: CBD and intrahepatic ducts normal caliber. No filling defects. INFERIOR VENA CAVA: Poorly seen. AORTA: Poorly seen. RIGHT KIDNEY: Normal size, 12.9 cm. Normal echogenicity. No solid or suspicious masses. No hydroneph rosis. No calcifications. PERITONEAL AND RIGHT PLEURAL SPACE: No ascites or effusions. OTHER: No other significant findings. IMPRESSION: Limited study. The gallbladder was not well seen. Fatty infiltration of the liver. TECHNICAL DOCUMENTATION: JOB ID: [id number] [employer]- All Rights Reserved Reading location - IP/workstation name: [email or web address]
== END ==
LOC: RAD 08:40
PROVIDERS: ATTEND Family Medicine
DX: K80.20 Calculus of gallbladder without cholecystitis without obstruction (principal)
CPT/HCPCS: 76705

== ENCOUNTER → 2018-07-29 | Outpatient (CLI) | payer MEDICARE, OTHER ==
--- NOTE | 2018-07-30 08:59 | RADIOLOGY REPORT (SQ) ---
EXAM DESCRIPTION: MRI RT UPPER JOINT WITHOUT COMPLETED DATE/TIME: 07/29/2018 5:30 pm REASON FOR STUDY: M25.511 PAIN IN RIGHT SHOULDER M25.511 PAIN IN RIGHT SHOULDER COMPARISON: None. TECHNIQUE: Right shoulder images acquired and stored on PACS. Multiplanar imaging to include fat sen sitive sequences such as T1, water sensitive sequences such as FST2/STIR, cartilage sensitive sequenc es such as FSPD/gradient-echo sequences. LIMITATIONS: None. FINDINGS: BONE MARROW AND CORTEX: No worrisome bone lesions or marrow replacement. No occult fractur es. JOINT OR BURSAL EFFUSION: Trace fluid in the subacromial/subdeltoid bursa. Loose body versus calcifi cation, distal infraspinatus tendon posteriorly on axial image 8, 5 x 4 mm in size. GLENO-HUMERAL ARTICULATION: Normal articulation. No subluxation. No cystic change. No osteophytes or cartilage loss. ACROMION AND AC JOINT: Type 2 acromion with bulky AC hypertrophy, bony spurring, edema in the distal clavicle with fluid in the AC joint. This narrows the subacromial space with trace subacromial/subde ltoid bursal fluid on sagittal image 12. ROTATOR CUFF AND INTERVAL: There is calcification/ossification versus a small loose body along the de ep aspect of the distal infraspinatus tendon on axial image 8. More diffuse tendinopathy throughout the distal supra and infraspinatus tendons is present with tendon thinning and high signal. No discr ete full-thickness tear is identified. There is some rotator interval thickening suggesting adhesiv e capsulitis. LABRUM AND BICEPS LABRAL COMPLEX: Intra-articular long-head biceps tendon is intact. There is a schmidt perior labral tear extending anteriorly without paralabral cyst, best shown on axial images 4-8 and s agittal image 13. REMAINDER OF LABRUM AND IGHL : No gross tear or paralabral cyst formation. Labral evaluation is less than optimal without joint distention. No thickening of IGHL to suggest adhesive capsulitis. PERIARTICULAR AND ADJACENT SOFT TISSUES: No masses or abnormal nodes. OTHER: No other significant finding. IMPRESSION: Superior labral tear Diffuse tendinopathy in the supra and infraspinatus tendons Bulky acromioclavicular joint hypertrophy with narrowing of the subacromial space and fluid in the schmidt b acromial/ subdeltoid bursa TECHNICAL DOCUMENTATION: JOB ID: [id number] [employer]- All Rights Reserved Reading location - IP/workstation name: [email or web address]
== END ==
LOC: RAD 15:44
PROVIDERS: ATTEND Orthopaedic Surgery Sports Medicine
DX: M25.511 Pain in right shoulder (principal)

== ENCOUNTER → 2019-05-19 | Outpatient (CLI) | payer MEDICARE, OTHER ==
--- NOTE | 2019-05-19 14:24 | RADIOLOGY REPORT (SQ) ---
EXAM DESCRIPTION: U/S ABDOMEN LIMITED W/O DOP IMAGES COMPLETED DATE/TIME: 05/19/2019 9:53 am REASON FOR STUDY: FATTY LIVER K76.0 FATTY (CHANGE OF) LIVER, NOT ELSEWHERE CLASSIFIED COMPARISON: None. TECHNIQUE: Dynamic and static grayscale images acquired of the abdomen and recorded on PACS. Additio nal selected color Doppler and spectral images recorded. LIMITATIONS: Limited visualization. Poor acoustical window FINDINGS: PANCREAS: Limited visualization. no masses seen LIVER: Normal size Mild fatty infiltration. No focal masses. LIVER VASCULATURE: Normal directional flow of the main portal vein and hepatic veins. GALLBLADDER: Gallstone(s). No pericholecystic fluid. No wall thickening. ULTRASOUND-DETECTED WHITLOCK'S SIGN: Negative. INTRAHEPATIC DUCTS AND COMMON DUCT: CBD and intrahepatic ducts normal caliber. No filling defects. INFERIOR VENA CAVA: Normal flow. AORTA: No aneurysm. RIGHT KIDNEY: Normal size. Normal echogenicity. No solid or suspicious masses. No hydronephros is. No calcifications. PERITONEAL AND RIGHT PLEURAL SPACE: No ascites or effusions. OTHER: No other significant findings. IMPRESSION: Fatty liver. Cholelithiasis. No evidence of acute cholecystitis. TECHNICAL DOCUMENTATION: JOB ID: [id number] 2010 [employer]- All Rights Reserved Reading location - IP/workstation name: [email or web address]
== END ==
LOC: RAD 09:07
PROVIDERS: ATTEND Family Medicine
DX: K76.0 Fatty (change of) liver, not elsewhere classified (principal)
CPT/HCPCS: 76705

== ENCOUNTER → 2019-09-11 | Outpatient (CLI) | payer MEDICARE, OTHER ==
--- NOTE | 2019-09-11 12:32 | RADIOLOGY REPORT (SQ) ---
EXAM DESCRIPTION: FOOT LEFT COMPLETE IMAGES COMPLETED DATE/TIME: 09/11/2019 11:49 am REASON FOR STUDY: PAIN IN LEFT FOOT M79.672 PAIN IN LEFT FOOT COMPARISON: None. NUMBER OF VIEWS: Three views. TECHNIQUE: AP, lateral and oblique radiographic images acquired of the left foot. LIMITATIONS: None. FINDINGS: MINERALIZATION: Normal. BONES: No fracture or dislocation. Prominent plantar and posterior calcaneal spurs. JOINTS: Mild degenerative joint changes seen in the distal interphalangeal joints of the 2nd, 3rd, an d 4th digits. SOFT TISSUES: No soft tissue swelling. No foreign body. OTHER: No other significant finding. IMPRESSION: Calcaneal spurs. Mild degenerative joint changes. TECHNICAL DOCUMENTATION: JOB ID: [id number] 2010 [employer]- All Rights Reserved Reading location - IP/workstation name: [email or web address]
== END ==
LOC: OD 11:31
PROVIDERS: ATTEND Family Medicine
DX: M77.32 Calcaneal spur, left foot (principal); M19.072 Primary osteoarthritis, left ankle and foot